=== PATIENT | male | born 1960 | race Two or more races ===

== ENCOUNTER 2020-02-17 11:16 | Inpatient (IN) | payer SELFPAY ==
[~2020-02-17] VITALS: Ht 165.1 cm; Wt 70.3 kg
[2020-02-17] MEDS: IPRATROPIUM/ALBUTEROL 0.5-3(2.5)MG/3ML NEB HHN SCH ×2 (04:20→20:10)
[2020-02-17] MEDS ORDERED: SODIUM CHLORIDE 0.9% 1,000 ML IV ONE (11:21)
[2020-02-17] MEDS ORDERED: FOLIC ACID 1 MG, THIAMINE HCL 100 MG, MVI, ADULT NO.1 10 ML in DEXTROSE 5% WATER 1,000 ML IV ONE ×4 (11:45)
[2020-02-17 12:08] LABS: CHLORIDE 93 mEq/L (98-107)
[2020-02-17 12:10] LABS: HEMATOCRIT. 36.1 % (42.0-52.0); HEMOGLOBIN. 11.7 g/dL (14.0-18.0); MEAN CORPUSCULAR VOLUME 110.7 fL (80.0-94.0); MEAN PLATELET VOLUME 9.3 fl (7.4-10.4); PLATELET 278 x1000/uL (130-400); RED BLOOD CELL COUNT 3.26 mill/uL (4.7-6.1); RED CELL DISTRIBUTION WIDTH 15.1 % (11.6-14.6)
[2020-02-17 12:13] LABS: ETHANOL BLOOD < 10 mg/dL
[2020-02-17] MEDS ORDERED: SUCCINYLCHOLINE CHLORIDE 200MG/10ML IV ONE (12:15)
[2020-02-17] MEDS ORDERED: ETOMIDATE 2MG/ML 10ML VIAL IV ONE (12:15)
[2020-02-17 12:17] LABS: CREATINE KINASE 137 IU/L (39-308)
[2020-02-17 12:18] LABS: D-DIMER 6.56 mg/L FEU (<0.50); INR 1.8; PROTHROMBIN TIME 18.5 sec (9.6-11.0)
[2020-02-17] MEDS ORDERED: SODIUM BICARBONATE 8.4% 1 MEQ/ML 50ML SYR IV ONE (12:30)
[2020-02-17] MEDS ORDERED: SODIUM CHLORIDE 0.9% 1000ML BAG (SEPSIS BOLUS) IV ONE (12:30)
[2020-02-17] MEDS ORDERED: PIPERACILLIN/TAZ 3.375G PREMIX 50 ML IV ONE (12:30)
[2020-02-17] MEDS ORDERED: VECURONIUM BROMIDE 10 MG/VIAL IV ONE (12:45)
[2020-02-17] MEDS ORDERED: MIDAZOLAM HCL 50 MG in DEXTROSE 5% WATER 40 ML IV ONE (12:45)
[2020-02-17] MEDS ORDERED: LORAZEPAM 2MG/ML CPJ IV ONE (12:45)
[2020-02-17 12:50] LABS: AMYLASE 938 IU/L (25-115)
[2020-02-17] MEDS: DEXT 5%/0.45% NACL 1000ML 1,000 ML IV SCH ×2 (13:06→23:56)
[2020-02-17 13:09] LABS: NUCLEATED RED BLOOD CELLS 10 /100 WBC; PLATELET ESTIMATE NORMAL
[2020-02-17] MEDS ORDERED: ENOXAPARIN 40MG/0.4ML SYR SUBCUT SCH (13:15)
[2020-02-17] MEDS ORDERED: DOCUSATE SODIUM 100MG CAPSULE PO PRN (13:15)
[2020-02-17] MEDS ORDERED: IPRATROPIUM/ALBUTEROL 0.5-3(2.5)MG/3ML NEB ORI PRN (13:15)
[2020-02-17] MEDS ORDERED: CLONIDINE 0.1MG TABLET PO PRN (13:15)
[2020-02-17] MEDS ORDERED: SODIUM CHLORIDE 0.9% 1000ML BAG (SEPSIS BOLUS) IV NR (13:15)
[2020-02-17] MEDS ORDERED: ONDANSETRON HCL 4MG/2ML INJ IV PRN (13:15)
[2020-02-17] MEDS ORDERED: PIPERACILLIN/TAZ 3.375G PREMIX 50 ML IV SCH (13:15)
[2020-02-17] MEDS ORDERED: ACETAMINOPHEN 325MG TABLET PO PRN (13:15)
[2020-02-17] MEDS ORDERED: GUAIFENESIN 200MG/10ML SUGAR FREE UDC PO PRN (13:15)
[2020-02-17] MEDS ORDERED: IPRATROPIUM/ALBUTEROL 0.5-3(2.5)MG/3ML NEB HHN SCH (13:15)
[2020-02-17 13:38] LABS: CLARITY URINE TURBID (CLEAR); KETONES URINE 1+ (NEGATIVE); LEUKOCYTE ESTERASE URINE 1+ (NEGATIVE); NITRITE URINE POSITIVE (NEGATIVE); OCCULT BLOOD URINE NEGATIVE (NEGATIVE); PH URINE 5.5 (4.5-8.0); PROTEIN URINE 1+ (NEGATIVE); SPECIFIC GRAVITY URINE 1.021 (1.005-1.030)
[2020-02-17 13:39] LABS: T4 FREE 1.03 ng/dL (0.76-1.46)
[2020-02-17 13:42] LABS: COLOR URINE AMBER (YELLOW)
[2020-02-17 13:45] LABS: BG BASE EXCESS -15.3 mmol/L (-2.0-2.0); BG CARBOXYHEMOGLOBIN 0.3 % (0.5-1.5); BG DEOXYHEMOGLOBIN 0.3 % (0.0-5.0); BG FRACTION INSPIRED OXYGEN 100; BG HCO3 ACT 9.9 mmol/L (22.0-26.0); BG METHEMOGLOBIN 0.4 % (0.0-1.5); BG OXYGEN SATURATION 99.7 % (92.0-98.5); BG PCO2 21.9 mmHg (35.0-45.0); BG PH 7.274 (7.350-7.450); BG PO2 574.2 mmHg (75.0-100.0); BG SAMPLE SITE RIGHT RADIAL; BG TIDAL VOLUME(mL) 500 mL; BG TOTAL HEMOGLOBIN 9.1 g/dL (12.0-18.0); BG VENT MODE VENT - A/C; BG VENT RATE 22 set
[2020-02-17 13:55] LABS: VITAMIN B12 SERUM >2000 pg/mL pg/mL (211-911)
[2020-02-17 14:02] LABS: HDL CHOLESTEROL 12 mg/dL (40-59); LDL CHOLESTEROL 145 mg/dL (5-100)
[2020-02-17 14:06] LABS: *AMPHETAMINES SCREEN URINE NEGATIVE (NEGATIVE); *BARBITURATES SCREEN URINE NEGATIVE (NEGATIVE); *BENZODIAZEPINES SCREEN URINE NEGATIVE (NEGATIVE); *COCAINE SCREEN URINE NEGATIVE (NEGATIVE); METHADONE URINE SCREEN NEGATIVE (NEGATIVE)
[2020-02-17 14:07] LABS: CANNABINOID URINE SCREEN NEGATIVE (NEGATIVE); OPIATES URINE SCREEN NEGATIVE (NEGATIVE); PHENCYCLIDINE URINE SCREEN NEGATIVE (NEGATIVE)
[2020-02-17 14:10] LABS: TOTAL IRON BINDING CAPACITY 15 ug/dL (250-450)
[2020-02-17] MEDS ORDERED: MIDAZOLAM HCL 100 MG in DEXTROSE 5% WATER 80 ML IV NR (14:15)
[2020-02-17 14:18] LABS: FOLIC ACID (FOLATE) SERUM > 20.00 ng/mL (>5.38)
[2020-02-17] MEDS ORDERED: NOREPINEPHRINE 4MG/250ML PMX 250 ML IV NR (14:30)
[2020-02-17] MEDS ORDERED: SODIUM BICARBONATE 8.4% 1 MEQ/ML 50ML SYR IV NR (15:00)
[2020-02-17] MEDS ORDERED: PROPOFOL 10MG/ML 100ML 100 ML IV PRN (15:00)
[2020-02-17] MEDS ORDERED: VANCOMYCIN 1 G PREMIX 200 ML IV NR (15:15)
[2020-02-17] MEDS: PIPERACILLIN/TAZOBACTAM 2.25 G in DEXTROSE 5% WATER 50 ML IV SCH (21:44)
[2020-02-17 23:04] VITALS: BP 83/57
[2020-02-17 23:06] VITALS: BP 82/58
[2020-02-17 23:14] VITALS: BP 89/60
[2020-02-17 23:15] VITALS: BP 88/58
[2020-02-17 23:30] VITALS: BP 90/62
[2020-02-17 23:45] VITALS: BP 97/70
[2020-02-18] VITALS (96 sets, daily range): BP systolic 56–114; BP diastolic 30–71
[2020-02-18] MEDS ORDERED: MIDAZOLAM HCL 100 MG in DEXT 5% WATER 80 ML IV PRN ×2
[2020-02-18] MEDS: LACTULOSE 20G/30ML UDC PO SCH ×4 (00:09→21:04)
[2020-02-18] MEDS: NOREPINEPHRINE 8 MG in DEXT 5% WATER 242 ML IV PRN ×4 (00:41→20:53)
[2020-02-18] MEDS: PIPERACILLIN/TAZOBACTAM 2.25 G in DEXTROSE 5% WATER 50 ML IV SCH ×3 (06:13→20:52)
[2020-02-18] MEDS ORDERED: POTASSIUM CHLORIDE 20MEQ/PACKET PO NR (07:00)
[2020-02-18] MEDS ORDERED: INSULIN LISPRO 100 UNITS/ML SUBCUT SCH (07:00)
[2020-02-18] MEDS ORDERED: BLOOD SUGAR DIAGNOSTIC STRIP TEST SCH (07:04)
[2020-02-18 07:14] LABS: PHOSPHORUS 3.2 mg/dL (2.5-4.9)
[2020-02-18] MEDS ORDERED: POTASSIUM CHLORIDE INJ 30 MEQ in DEXT 5%/0.9% NACL 1,000 ML IV SCH (08:00)
[2020-02-18] MEDS ORDERED: KCL 20MEQ/100ML PREMIX 100 ML IV NR (08:00)
[2020-02-18 08:19] LABS: BG BASE EXCESS -9.5 mmol/L (-2.0-2.0); BG CARBOXYHEMOGLOBIN 0.4 % (0.5-1.5); BG DEOXYHEMOGLOBIN 0.5 % (0.0-5.0); BG FRACTION INSPIRED OXYGEN 50; BG HCO3 ACT 13.2 mmol/L (22.0-26.0); BG METHEMOGLOBIN 0.3 % (0.0-1.5); BG OXYGEN SATURATION 99.5 % (92.0-98.5); BG OXYHEMOGLOBIN 98.8 % (94.0-97.0); BG PH 7.377 (7.350-7.450); BG PO2 223.9 mmHg (75.0-100.0); BG SAMPLE SITE RIGHT BRACHIAL; BG TIDAL VOLUME(mL) 500 mL; BG TOTAL HEMOGLOBIN 16.2 g/dL (12.0-18.0); BG VENT MODE VENT - A/C; BG VENT RATE 22 set
[2020-02-18] MEDS: IPRATROPIUM/ALBUTEROL 0.5-3(2.5)MG/3ML NEB HHN SCH ×3 (08:20→16:00)
[2020-02-18] MEDS ORDERED: ENOXAPARIN 30MG/0.3ML SYR SUBCUT SCH (09:00)
[2020-02-18] MEDS: PANTOPRAZOLE SODIUM 40 MG/VIAL IV SCH (09:32)
[2020-02-18] MEDS: PHENYLEPHRINE 40 MG in DEXT 5% WATER 246 ML IV PRN ×4 (10:58→23:12)
[2020-02-18] MEDS ORDERED: WATER IV SCH (12:00)
[2020-02-18] MEDS ORDERED: SODIUM BICARBONATE IV SCH (12:00)
[2020-02-18] MEDS ORDERED: POTASSIUM ACETATE IV SCH (12:00)
[2020-02-18] MEDS ORDERED: DEXTROSE 5% IV SCH (12:00)
[2020-02-18] MEDS ORDERED: SODIUM CHLORIDE 0.9% 1,000 ML IV SCH (12:15)
[2020-02-18] MEDS: INSULIN LISPRO 100 UNITS/ML SUBCUT SCH ×3 (12:25→23:11)
[2020-02-18] MEDS ORDERED: SODIUM CHLORIDE 0.9% 1,000 ML IV ONE ×2 (12:30→13:00)
[2020-02-18] MEDS: BLOOD SUGAR DIAGNOSTIC STRIP TEST SCH ×3 (12:56→23:06)
[2020-02-18 13:45] LABS: HEPATITIS B SURFACE ANTIGEN NEGATIVE
[2020-02-18 14:15] LABS: HEPATITIS A AB IGM NEGATIVE (NEGATIVE)
[2020-02-18] MEDS: POTASSIUM ACETATE IV SCH (14:49)
[2020-02-18] MEDS: SODIUM CHLORIDE 0.45% IV SCH (14:49)
[2020-02-18] MEDS: SODIUM BICARBONATE IV SCH (14:49)
[2020-02-18] MEDS: ACETAMINOPHEN 325MG TABLET PO PRN (14:56)
[2020-02-18] MEDS ORDERED: VANCOMYCIN 750 MG PREMIX 150 ML IV NR (15:00)
[2020-02-19] VITALS (97 sets, daily range): BP systolic 65–153; BP diastolic 32–87
[2020-02-19] MEDS: POTASSIUM ACETATE IV SCH ×3 (01:46→21:37)
[2020-02-19] MEDS: SODIUM BICARBONATE IV SCH ×3 (01:46→21:37)
[2020-02-19] MEDS: SODIUM CHLORIDE 0.45% IV SCH ×3 (01:46→21:37)
[2020-02-19] MEDS: NOREPINEPHRINE 32 MG in DEXT 5% WATER 468 ML IV PRN ×2 (01:46→17:28)
[2020-02-19] MEDS: PHENYLEPHRINE 80 MG in DEXT 5% WATER 492 ML IV PRN ×3 (03:39→19:12)
[2020-02-19] MEDS: PIPERACILLIN/TAZOBACTAM 2.25 G in DEXTROSE 5% WATER 50 ML IV SCH ×2 (05:00→14:00)
[2020-02-19 05:12] LABS: HEMATOCRIT. 33.6 % (42.0-52.0); HEMOGLOBIN. 10.4 g/dL (14.0-18.0); MEAN CORPUSCULAR HEMOGLOBIN 36.1 pg (28.0-32.0); MEAN CORPUSCULAR VOLUME 116.1 fL (80.0-94.0); MEAN PLATELET VOLUME 10.2 fl (7.4-10.4); PLATELET 131 x1000/uL (130-400); RED BLOOD CELL COUNT 2.89 mill/uL (4.7-6.1); RED CELL DISTRIBUTION WIDTH 16.7 % (11.6-14.6)
[2020-02-19 05:18] LABS: CHLORIDE 95 mEq/L (98-107)
[2020-02-19] MEDS: LACTULOSE 20G/30ML UDC PO SCH ×3 (05:21→21:34)
[2020-02-19] MEDS: BLOOD SUGAR DIAGNOSTIC STRIP TEST SCH ×4 (05:21→23:33)
[2020-02-19] MEDS: INSULIN LISPRO 100 UNITS/ML SUBCUT SCH ×4 (05:26→23:33)
[2020-02-19 05:30] LABS: PHOSPHORUS 5.6 mg/dL (2.5-4.9)
[2020-02-19 07:44] LABS: NUCLEATED RED BLOOD CELLS 23 /100 WBC; PLATELET ESTIMATE NORMAL
[2020-02-19] MEDS ORDERED: SODIUM BICARBONATE 8.4% 1 MEQ/ML 50ML SYR IV SCH (08:00)
[2020-02-19] MEDS ORDERED: SODIUM CHLORIDE 0.9% 1,000 ML IV SCH (08:15)
[2020-02-19] MEDS: VASOPRESSIN 10 UNIT in SODIUM CHLORIDE 0.9% 99.5 ML IV PRN ×3 (08:44→17:27)
[2020-02-19] MEDS: PANTOPRAZOLE SODIUM 40 MG/VIAL IV SCH (08:46)
[2020-02-19] MEDS: ENOXAPARIN 60MG/0.6ML SYR SUBCUT SCH (08:46)
[2020-02-19 08:58] LABS: BG BASE EXCESS -20.7 mmol/L (-2.0-2.0); BG CARBOXYHEMOGLOBIN 0.5 % (0.5-1.5); BG DEOXYHEMOGLOBIN 4.2 % (0.0-5.0); BG FRACTION INSPIRED OXYGEN 40; BG METHEMOGLOBIN 0.2 % (0.0-1.5); BG OXYGEN SATURATION 95.8 % (92.0-98.5); BG OXYHEMOGLOBIN 95.1 % (94.0-97.0); BG PCO2 17.5 mmHg (35.0-45.0); BG PH 7.154 (7.350-7.450); BG PO2 91.7 mmHg (75.0-100.0); BG SAMPLE SITE RIGHT RADIAL; BG TIDAL VOLUME(mL) 500 mL; BG TOTAL HEMOGLOBIN 11.5 g/dL (12.0-18.0); BG VENT MODE VENT - A/C; BG VENT RATE 22 set
[2020-02-19] MEDS: DEXAMETHASONE 10 MG/ML VIAL IV SCH (09:00)
[2020-02-19] MEDS: ALBUMIN HUMAN 25GM/100ML (25%) IV SCH ×2 (10:08→17:32)
[2020-02-19] MEDS ORDERED: SODIUM BICARBONATE 8.4% 1 MEQ/ML 50ML SYR IV NR (10:15)
[2020-02-19 13:43] LABS: BG BASE EXCESS -6.3 mmol/L (-2.0-2.0); BG CARBOXYHEMOGLOBIN 0.7 % (0.5-1.5); BG DEOXYHEMOGLOBIN 4.1 % (0.0-5.0); BG FRACTION INSPIRED OXYGEN 50; BG HCO3 ACT 16.6 mmol/L (22.0-26.0); BG METHEMOGLOBIN 0.1 % (0.0-1.5); BG OXYGEN SATURATION 95.9 % (92.0-98.5); BG OXYHEMOGLOBIN 95.1 % (94.0-97.0); BG PCO2 25.1 mmHg (35.0-45.0); BG PH 7.439 (7.350-7.450); BG PO2 76.1 mmHg (75.0-100.0); BG SAMPLE SITE RIGHT RADIAL; BG TIDAL VOLUME(mL) 500 mL; BG TOTAL HEMOGLOBIN 10.1 g/dL (12.0-18.0); BG VENT MODE VENT - A/C; BG VENT RATE 28 set
[2020-02-19] MEDS: CITRIC ACID/SODIUM CITRATE SOLN 30ML UDC NG SCH ×2 (13:59→16:06)
[2020-02-19] MEDS ORDERED: PERMETHRIN 5% CREAM 60GM TOP NR (15:00)
[2020-02-19] MEDS ORDERED: VANCOMYCIN 750 MG PREMIX 150 ML IV NR (16:00)
[2020-02-19] MEDS: IPRATROPIUM/ALBUTEROL 0.5-3(2.5)MG/3ML NEB HHN SCH (21:25)
[2020-02-20] VITALS (78 sets, daily range): BP systolic 67–161; BP diastolic 41–104
[2020-02-20] MEDS: IPRATROPIUM/ALBUTEROL 0.5-3(2.5)MG/3ML NEB HHN SCH ×6 (00:50→20:39)
[2020-02-20] MEDS: ALBUMIN HUMAN 25GM/100ML (25%) IV SCH (01:10)
[2020-02-20] MEDS: VASOPRESSIN 10 UNIT in SODIUM CHLORIDE 0.9% 99.5 ML IV PRN (01:11)
[2020-02-20] MEDS: PHENYLEPHRINE 80 MG in DEXT 5% WATER 492 ML IV PRN ×2 (03:04→10:45)
[2020-02-20 05:41] LABS: CHLORIDE 87 mEq/L (98-107); HEMATOCRIT. 30.5 % (42.0-52.0); HEMOGLOBIN. 10.4 g/dL (14.0-18.0); MEAN CORPUSCULAR VOLUME 105.9 fL (80.0-94.0); MEAN PLATELET VOLUME 10.1 fl (7.4-10.4); PLATELET 76 x1000/uL (130-400); RED BLOOD CELL COUNT 2.88 mill/uL (4.7-6.1); RED CELL DISTRIBUTION WIDTH 15.3 % (11.6-14.6)
[2020-02-20 05:54] LABS: PHOSPHORUS 2.6 mg/dL (2.5-4.9)
[2020-02-20] MEDS: BLOOD SUGAR DIAGNOSTIC STRIP TEST SCH ×4 (06:02→23:51)
[2020-02-20] MEDS: INSULIN LISPRO 100 UNITS/ML SUBCUT SCH ×4 (06:02→23:51)
[2020-02-20] MEDS: LACTULOSE 20G/30ML UDC PO SCH ×3 (06:03→22:48)
[2020-02-20] MEDS: CITRIC ACID/SODIUM CITRATE SOLN 30ML UDC NG SCH ×3 (09:00→16:46)
[2020-02-20] MEDS: ENOXAPARIN 60MG/0.6ML SYR SUBCUT SCH (09:10)
[2020-02-20] MEDS: DEXAMETHASONE 10 MG/ML VIAL IV SCH (09:11)
[2020-02-20] MEDS: PANTOPRAZOLE SODIUM 40 MG/VIAL IV SCH (09:11)
[2020-02-20] MEDS: SODIUM BICARBONATE IV SCH ×2 (09:12→22:48)
[2020-02-20] MEDS: POTASSIUM ACETATE IV SCH ×2 (09:12→22:48)
[2020-02-20] MEDS: SODIUM CHLORIDE 0.45% IV SCH ×2 (09:12→22:48)
[2020-02-20] MEDS: MEROPENEM 1,000 MG in SODIUM CHLORIDE 0.9% 100 ML IV SCH (09:17)
[2020-02-20] MEDS: NOREPINEPHRINE 32 MG in DEXT 5% WATER 468 ML IV PRN (10:44)
[2020-02-20 11:52] LABS: NUCLEATED RED BLOOD CELLS 5 /100 WBC; PLATELET ESTIMATE DECREASED
[2020-02-20] MEDS ORDERED: MAGNESIUM 2 G PREMIX 50 ML IV NR (13:00)
[2020-02-20] MEDS ORDERED: MIDAZOLAM HCL 100 MG in SODIUM CHLORIDE 0.9% 80 ML IV PRN (13:00)
[2020-02-20] MEDS ORDERED: CALCIUM GLUCONATE 1,000 MG in DEXT 5% WATER 90 ML IV NR (13:00)
[2020-02-20] MEDS: ACETAMINOPHEN 325MG TABLET PO PRN (16:46)
[2020-02-20] MEDS ORDERED: PHENYLEPHRINE 80 MG in DEXT 5% WATER 500 ML IV PRN (19:15)
[2020-02-20] MEDS: PHENYLEPHRINE 80 MG in SODIUM CHLORIDE 0.9% 492 ML IV PRN (19:37)
[2020-02-21] VITALS (91 sets, daily range): BP systolic 41–155; BP diastolic 21–109
[2020-02-21] MEDS: IPRATROPIUM/ALBUTEROL 0.5-3(2.5)MG/3ML NEB HHN SCH ×7 (00:28→23:55)
[2020-02-21] MEDS: PHENYLEPHRINE 80 MG in SODIUM CHLORIDE 0.9% 492 ML IV PRN ×3 (01:59→19:00)
[2020-02-21] MEDS: NOREPINEPHRINE 32 MG in SODIUM CHLORIDE 0.9% 468 ML IV PRN (04:06)
[2020-02-21 05:24] LABS: HEMATOCRIT. 31.4 % (42.0-52.0); HEMOGLOBIN. 10.7 g/dL (14.0-18.0); MEAN CORPUSCULAR VOLUME 105.4 fL (80.0-94.0); MEAN PLATELET VOLUME 10.4 fl (7.4-10.4); PLATELET 55 x1000/uL (130-400); RED BLOOD CELL COUNT 2.98 mill/uL (4.7-6.1); RED CELL DISTRIBUTION WIDTH 15.5 % (11.6-14.6)
[2020-02-21 05:35] LABS: CHLORIDE 86 mEq/L (98-107)
[2020-02-21] MEDS: BLOOD SUGAR DIAGNOSTIC STRIP TEST SCH ×3 (05:42→17:25)
[2020-02-21] MEDS: INSULIN LISPRO 100 UNITS/ML SUBCUT SCH ×3 (05:43→17:25)
[2020-02-21] MEDS: LACTULOSE 20G/30ML UDC PO SCH (05:45)
[2020-02-21 07:35] LABS: BG BASE EXCESS 2.7 mmol/L (-2.0-2.0); BG CARBOXYHEMOGLOBIN 1.4 % (0.5-1.5); BG DEOXYHEMOGLOBIN 1.9 % (0.0-5.0); BG METHEMOGLOBIN 0.2 % (0.0-1.5); BG OXYGEN SATURATION 98.1 % (92.0-98.5); BG OXYHEMOGLOBIN 96.5 % (94.0-97.0); BG PH 7.618 (7.350-7.450); BG PO2 97.6 mmHg (75.0-100.0); BG SAMPLE SITE RIGHT RADIAL; BG TIDAL VOLUME(mL) 500 mL; BG TOTAL HEMOGLOBIN 10.4 g/dL (12.0-18.0); BG VENT MODE VENT - A/C; BG VENT RATE 28 set
[2020-02-21] MEDS: SODIUM CHLORIDE 0.45% IV SCH (07:52)
[2020-02-21] MEDS: POTASSIUM ACETATE IV SCH (07:52)
[2020-02-21] MEDS: SODIUM BICARBONATE IV SCH (07:52)
[2020-02-21] MEDS ORDERED: CALCIUM GLUCONATE 1,000 MG in DEXT 5% WATER 90 ML IV SCH ×3 (08:00→12:00)
[2020-02-21] MEDS: PANTOPRAZOLE SODIUM 40 MG/VIAL IV SCH (08:02)
[2020-02-21] MEDS: DEXAMETHASONE 10 MG/ML VIAL IV SCH (08:02)
[2020-02-21] MEDS: CITRIC ACID/SODIUM CITRATE SOLN 30ML UDC NG SCH (08:02)
[2020-02-21] MEDS: MEROPENEM 1,000 MG in SODIUM CHLORIDE 0.9% 100 ML IV SCH (08:03)
[2020-02-21] MEDS: ENOXAPARIN 60MG/0.6ML SYR SUBCUT SCH (08:39)
[2020-02-21 10:17] LABS: NUCLEATED RED BLOOD CELLS 5 /100 WBC; PLATELET ESTIMATE DECREASED
[2020-02-21 12:18] LABS: BG BASE EXCESS 3.6 mmol/L (-2.0-2.0); BG CARBOXYHEMOGLOBIN 1.2 % (0.5-1.5); BG DEOXYHEMOGLOBIN 0.8 % (0.0-5.0); BG FRACTION INSPIRED OXYGEN 50; BG HCO3 ACT 25.3 mmol/L (22.0-26.0); BG METHEMOGLOBIN 0.4 % (0.0-1.5); BG OXYGEN SATURATION 99.2 % (92.0-98.5); BG OXYHEMOGLOBIN 97.6 % (94.0-97.0); BG PCO2 28.2 mmHg (35.0-45.0); BG PH 7.571 (7.350-7.450); BG PO2 135.3 mmHg (75.0-100.0); BG SAMPLE SITE RIGHT RADIAL; BG TIDAL VOLUME(mL) 500 mL; BG TOTAL HEMOGLOBIN 9.8 g/dL (12.0-18.0); BG VENT MODE VENT - A/C; BG VENT RATE 20 set
[2020-02-21] MEDS: CALCITRIOL 1MCG/ML AMP IV SCH (14:17)
[2020-02-21] MEDS ORDERED: KCL 20MEQ/100ML PREMIX 100 ML IV SCH (15:00)
[2020-02-21] MEDS ORDERED: POTASSIUM PHOS,M-BASIC-D-BASIC 30 MMOL in SODIUM CHLORIDE 0.9% 500 ML IV SCH (15:00)
[2020-02-21] MEDS ORDERED: SODIUM CHL 0.9% + KCL 20MEQ/L 1,000 ML IV SCH (16:00)
[2020-02-21 16:19] LABS: CHLORIDE 89 mEq/L (98-107)
[2020-02-21] MEDS: CEFAZOLIN 2,000 MG in DEXT 5% WATER 100 ML IV SCH (17:38)
[2020-02-21] MEDS ORDERED: SODIUM CHLORIDE 0.9% 1,000 ML IV SCH ×2 (18:30→20:05)
[2020-02-21] MEDS ORDERED: CALCIUM GLUCONATE 1,000 MG in DEXT 5% WATER 90 ML IV NR ×2 (20:00→22:00)
[2020-02-21] MEDS: CITRIC ACID/SODIUM CITRATE SOLN 30ML UDC PO SCH (21:00)
[2020-02-21] MEDS: VASOPRESSIN 10 UNIT in SODIUM CHLORIDE 0.9% 99.5 ML IV PRN (22:10)
[2020-02-21] MEDS ORDERED: SODIUM CHLORIDE 0.9% IV SCH (23:00)
[2020-02-21] MEDS ORDERED: CALCIUM GLUCONATE IV SCH (23:00)
[2020-02-22] VITALS (50 sets, daily range): BP systolic 57–187; BP diastolic 20–109
[2020-02-22] MEDS: BLOOD SUGAR DIAGNOSTIC STRIP TEST SCH ×5 (00:03→22:30)
[2020-02-22] MEDS: DEXTROSE 50% WATER 50ML SYRINGE IV PRN ×2 (00:04→05:26)
[2020-02-22] MEDS ORDERED: CALCIUM GLUCONATE 1,000 MG in DEXT 5% WATER 90 ML IV NR ×4 (02:00→04:00)
[2020-02-22] MEDS ORDERED: DEXT 10% WATER 1,000 ML IV SCH (02:00)
[2020-02-22] MEDS: NOREPINEPHRINE 32 MG in SODIUM CHLORIDE 0.9% 468 ML IV PRN (02:31)
[2020-02-22] MEDS: PHENYLEPHRINE 80 MG in SODIUM CHLORIDE 0.9% 492 ML IV PRN (02:31)
[2020-02-22] MEDS ORDERED: SODIUM BICARBONATE 150 MEQ in DEXT 10% WATER 1,000 ML IV SCH (03:00)
[2020-02-22] MEDS: IPRATROPIUM/ALBUTEROL 0.5-3(2.5)MG/3ML NEB HHN SCH ×4 (04:07→21:15)
[2020-02-22 05:25] LABS: HEMATOCRIT. 34.5 % (42.0-52.0); HEMOGLOBIN. 10.7 g/dL (14.0-18.0); MEAN CORPUSCULAR HEMOGLOBIN 36.3 pg (28.0-32.0); MEAN CORPUSCULAR VOLUME 117.1 fL (80.0-94.0); MEAN PLATELET VOLUME 11.6 fl (7.4-10.4); RED BLOOD CELL COUNT 2.94 mill/uL (4.7-6.1); RED CELL DISTRIBUTION WIDTH 17.7 % (11.6-14.6)
[2020-02-22] MEDS: CEFAZOLIN 2,000 MG in DEXT 5% WATER 100 ML IV SCH ×2 (05:26→17:35)
[2020-02-22] MEDS: VASOPRESSIN 10 UNIT in SODIUM CHLORIDE 0.9% 99.5 ML IV PRN ×5 (05:27→22:12)
[2020-02-22 05:45] LABS: CHLORIDE 92 mEq/L (98-107)
[2020-02-22 05:59] LABS: PLATELET 33 x1000/uL (130-400)
[2020-02-22] MEDS ORDERED: SODIUM BICARBONATE 8.4% 1 MEQ/ML 50ML SYR IV NR ×3 (07:30→10:45)
[2020-02-22] MEDS: INSULIN LISPRO 100 UNITS/ML SUBCUT SCH ×5 (08:00→22:30)
[2020-02-22] MEDS: DEXAMETHASONE 10 MG/ML VIAL IV SCH (08:31)
[2020-02-22] MEDS: PANTOPRAZOLE SODIUM 40 MG/VIAL IV SCH (08:31)
[2020-02-22] MEDS: CITRIC ACID/SODIUM CITRATE SOLN 30ML UDC PO SCH (08:31)
[2020-02-22] MEDS: CALCITRIOL 1MCG/ML AMP IV SCH (08:32)
[2020-02-22] MEDS: MEROPENEM 1,000 MG in SODIUM CHLORIDE 0.9% 100 ML IV SCH (08:47)
[2020-02-22] MEDS: SODIUM BICARBONATE 150 MEQ in DEXT 10% WATER 1,000 ML IV SCH ×2 (08:49→18:37)
[2020-02-22] MEDS: LACTULOSE 20G/30ML UDC PO SCH ×2 (08:54→17:35)
[2020-02-22] MEDS ORDERED: LACTULOSE 20G/30ML UDC PO SCH (09:00)
[2020-02-22] MEDS ORDERED: PHENYLEPHRINE 80 MG in SODIUM CHLORIDE 0.9% 492 ML IV PRN (09:30)
[2020-02-22] MEDS ORDERED: NOREPINEPHRINE 32 MG in SODIUM CHLORIDE 0.9% 468 ML IV PRN (09:30)
[2020-02-22] MEDS ORDERED: NOREPINEPHRINE 32 MG in SODIUM CHLORIDE 0.9% 468 ML IV ONE (09:30)
[2020-02-22 09:53] LABS: NUCLEATED RED BLOOD CELLS 7 /100 WBC
[2020-02-22 09:54] LABS: PLATELET ESTIMATE MARKEDLY DECREASED
[2020-02-22 10:15] LABS: BG BASE EXCESS -18.6 mmol/L (-2.0-2.0); BG CARBOXYHEMOGLOBIN 1.6 % (0.5-1.5); BG DEOXYHEMOGLOBIN 0.7 % (0.0-5.0); BG FRACTION INSPIRED OXYGEN 100; BG METHEMOGLOBIN 0.1 % (0.0-1.5); BG OXYGEN SATURATION 99.3 % (92.0-98.5); BG OXYHEMOGLOBIN 97.6 % (94.0-97.0); BG PCO2 21.5 mmHg (35.0-45.0); BG PH 7.187 (7.350-7.450); BG PO2 157.7 mmHg (75.0-100.0); BG SAMPLE SITE RIGHT BRACHIAL; BG TIDAL VOLUME(mL) 500 mL; BG VENT MODE VENT - A/C; BG VENT RATE 16 set
[2020-02-22 10:23] LABS: CREATINE KINASE 2168 IU/L (39-308)
[2020-02-23] VITALS: BP 174/31
[2020-02-23] MEDS: INSULIN LISPRO 100 UNITS/ML SUBCUT SCH
[2020-02-23] MEDS: BLOOD SUGAR DIAGNOSTIC STRIP TEST SCH (00:16)
[2020-02-23] MEDS ORDERED: SODIUM BICARBONATE 8.4% 1 MEQ/ML 50ML SYR IV NR (02:15)
[2020-02-23] MEDS: VASOPRESSIN 10 UNIT in SODIUM CHLORIDE 0.9% 99.5 ML IV PRN (02:58)
[2020-02-23] MEDS ORDERED: CITRIC ACID/SODIUM CITRATE SOLN 30ML UDC PO SCH (03:00)
[2020-02-23] MEDS: LACTULOSE 20G/30ML UDC PO SCH (03:05)
[2020-02-26] MEDS ORDERED: PERMETHRIN 5% CREAM 60GM TOP NR (15:00)
== END 2020-02-23 03:37 | disposition expired | DRG 720 ==
LOC: ER 11:16 → MICUSO 12:09 → EDBEDREQ 12:15 → EDBEDREQTM 12:15 → ENRESERV 21:06
PROVIDERS: ADMIT Internal Medicine; ATTEND Internal Medicine
PROC: 0BH17EZ Insertion of Endotracheal Airway into Trachea, Via Natural or Artificial Opening (ICD-10-PCS; principal; 2020-02-17)
PROC: 5A1955Z Respiratory Ventilation, Greater than 96 Consecutive Hours (ICD-10-PCS; 2020-02-17)
PROC: 06HY33Z Insertion of Infusion Device into Lower Vein, Percutaneous Approach (ICD-10-PCS; 2020-02-17)
PROC: B54NZZA Ultrasonography of Left Upper Extremity Veins, Guidance (ICD-10-PCS; 2020-02-17)
DX: A41.89 Other specified sepsis (principal); E87.2 Acidosis; J96.01 Acute respiratory failure with hypoxia; R65.21 Severe sepsis with septic shock; G92 Toxic encephalopathy; K74.60 Unspecified cirrhosis of liver; R74.8 Abnormal levels of other serum enzymes; E43 Unspecified severe protein-calorie malnutrition; N39.0 Urinary tract infection, site not specified; K85.90 Acute pancreatitis without necrosis or infection, unspecified; A41.01 Sepsis due to Methicillin susceptible Staphylococcus aureus; J12.89 Other viral pneumonia; U07.1 COVID-19; E87.1 Hypo-osmolality and hyponatremia; Z66 Do not resuscitate; N17.0 Acute kidney failure with tubular necrosis; E72.20 Disorder of urea cycle metabolism, unspecified; E83.51 Hypocalcemia; D63.8 Anemia in other chronic diseases classified elsewhere; K72.00 Acute and subacute hepatic failure without coma; R74.0 Nonspecific elevation of levels of transaminase and lactic acid dehydrogenase [LDH]; E87.6 Hypokalemia; E83.42 Hypomagnesemia; Z68.25 Body mass index [BMI] 25.0-25.9, adult; Z59.0 Homelessness
CPT/HCPCS: 36415; 36600; 71045; 80048; 80053; 80061; 80202; 80305; 80307; 80320; 80329; 81003; 82010; 82040; 82140; 82150; 82270; 82306; 82330; 82375; 82550; 82607; 82746; 82805; 82962; 83036; 83540; 83550; 83605; 83615; 83735; 83880; 83970; 84100; 84132; 84145; 84439; 84443; 84478; 84484; 85025; 85379; 85384; 86140; 86705; 86709; 86803; 86850; 86900; 87077; 87340; 87493; 93005; 93970; 94002; 94003; 94640; 99291; C9113; J0610; J0636; J0690; J1100; J1650; J1815; J2060; J2185; J2250; J2370; J2405; J2543; J3370; J3411; J3475; J3480; J3490; J7030; J7040; J7042; J7050; J7060; J7070; P9047; C9803-CS; G0480; U0003-CS